=== PATIENT | female | born 1995 | race Caucasian/White ===

== ENCOUNTER → 2020-09-20 14:39 | Outpatient (CLI) | payer OTHER, SELFPAY ==
[2020-09-20 13:01] VITALS: BMI 32.5
[2020-09-28 08:32] LABS: HPV Reflexed? NOT INDICATED
== END ==
PROVIDERS: Visit Provider Nurse Practitioner Women's Health
DX: Z12.4 Encounter for screening for malignant neoplasm of cervix (principal)
CPT/HCPCS: 88175; G0145